=== PATIENT | male | born 1945 | race Caucasian/White ===

== ENCOUNTER 2022-07-08 12:17 | Inpatient (IN) | payer MEDICARE, OTHER ==
[~2022-07-08] VITALS: Ht 185.4 cm; Wt 149.7 kg
[~2022-07-08 12:17] MED LIST: [UNRECOGNIZED DRUG - REMARK]
--- NOTE | 2022-07-08 12:45 | NUR ---
GURVINDER RA839 From Home "Tripped on a cord and fell been on the ground x3d my friend called the manager application development to check on me since they have NOT heard from me". PLACED IN BED, AAOX4, BREATHING EVEN AND UNLABORED SATURATING AT 97%RA. BRUISED R SHOULDER AND ARM AND SLOUGH SKIN-WOUND OF THE R CHEEK NOTED, DENIES PAIN.
--- NOTE | 2022-07-08 12:53 | NUR ---
AT BEDSIDE FOR EVAL
[2022-07-08] MEDS ORDERED: IV NS 0.9% 1,000 ML BAG IV ONE (13:30)
--- NOTE | 2022-07-08 13:31 | NUR ---
laborer at bedside
--- NOTE | 2022-07-08 13:56 | NUR ---
X-RAY TECH AT BEDSIDE
--- NOTE | 2022-07-08 13:57 | NUR ---
SWAB FOR COVID19 SENT TO LAB
[2022-07-08 14:04] LABS: BASOPHILS % (AUTO) 0.1 % (0.0-2.0); HEMATOCRIT 37 % (39-51); HEMOGLOBIN 12.4 g/dL (13.5-17.5); LYMPHOCYTES # (AUTO) 0.6 K/uL (0.8-4.8); LYMPHOCYTES % (AUTO) 6.1 % (20.0-44.0); MEAN CORPUSCULAR HGB CONC 33 g/dl (31.0-36.0); MEAN CORPUSCULAR VOLUME 101 fL (80-96); MONOCYTES # (AUTO) 1.1 K/uL (0.1-1.30); MONOCYTES % (AUTO) 10.3 % (2.0-12.0); NEUTROPHILS # (AUTO) 8.8 K/uL (1.8-8.9); NEUTROPHILS % (AUTO) 83.5 % (43.0-81.0); PLATELET COUNT (AUTO) 140 K/uL (150-450); RED BLOOD CELL COUNT(AUTO) 3.67 MIL/uL (4.5-6.0); WHITE BLOOD COUNT (AUTO) 10.5 K/uL (4.3-11.0)
[2022-07-08 14:25] LABS: CALCIUM, SERUM 9.1 mg/dL (8.5-10.1); CARBON DIOXIDE 25 mmol/L (21-32); CHLORIDE 102 mmol/L (98-107); CREATININE 1.1 mg/dL (0.6-1.3); GLUCOSE 156 mg/dL (74-106); POTASSIUM 4.2 mmol/L (3.5-5.1); SODIUM SERUM 137 mmol/L (136-145); UREA NITROGEN, BLOOD 33 mg/dL (7-18)
[2022-07-08] MEDS ORDERED: ACETAMINOPHEN ES 500 MG TABLET PO ONE (14:30)
[2022-07-08 14:32] LABS: ALANINE AMINOTRANSFERASE 33 U/L (12-78); ALBUMIN 3.2 g/dL (3.4-5.0); ALKALINE PHOSPHATASE 79 U/L (46-116); ASPARTATE AMINOTRANSFERASE 66 U/L (15-37); BILIRUBIN,DIRECT 0.5 mg/dL (0.0-0.2); BILIRUBIN,TOTAL 1.6 mg/dL (0.2-1.0); LIPASE 438 U/L (73-393); TOTAL PROTEIN, SERUM 7.3 g/dL (6.4-8.2)
--- NOTE | 2022-07-08 14:43 | NUR ---
PATIENT TAKEN TO CT VIA NICK
[2022-07-08] MEDS ORDERED: ACETAMINOPHEN ES 500 MG TABLET ONE (14:56)
[2022-07-08] MEDS ORDERED: Z GUARD REMEDY 4 OZ OINT TP PRN (16:30)
[2022-07-08] MEDS ORDERED: ONDANSETRON HCL/PF 4 MG/2 ML VIAL IVP PRN (16:30)
[2022-07-08] MEDS ORDERED: MAGNESIUM HYDROXIDE 30 ML UDC PO PRN (16:30)
[2022-07-08] MEDS ORDERED: MAG HYDROX/AL HYDROX/SIMETH 30 ML UDC PO PRN (16:30)
--- NOTE | 2022-07-08 19:56 | NUR ---
REPORT GIVEN TO FILIPE RN ROOM 325 FOR DOM
[2022-07-08 20:00] VITALS: BP 151/83
[2022-07-08 20:30] VITALS: BP 151/83
[2022-07-08] MEDS: IV NS 0.9% 1,000 ML IV PRN (20:51)
--- NOTE | 2022-07-08 21:00 | NUR ---
ACCOUNT MANAGER EDUCATION NOTE RECEIVED PATIENT FROM ER VIA GURNEY; AWAKE, ALERT AND ORIENTED X 3. PATIENT UNABLE TO AMBULATE; WITH DIAGNOSIS OF WEAKNESS. ON O2 INHALATION @ 3 LPM VIA NASAL CANNULA; TOLERATING WELL SATURATING @ 99%. BREATHING EVEN AND NONLABORED. NOT IN ANY FORM OF RESPIRATORY OR CARDIAC DISTRESS. DENIES ANY PAIN OR DISCOMFORT AT THIS TIME. WITH IV ACCESS ON LEFT WRIST 22G: PATENT, INTACT AND SALINE LOCKED. SKIN/BODY ASSESSMENT DONE; PICTURES TAKEN AND PLACED TO CHART. INVENTORY OF PERSONAL BELONGINGS DONE AND FORM SIGNED. ABLE TO MAKE NEEDS KNOWN. ORIENTED TO STAFF, ROOM AND UNIT. SAFETY MEASURES IMPLEMENTED: HEAD OF BED ELEVATED, CALL LIGHT AND TABLE WITHIN EASY REACH, SIDE RAILS UP X 2, BED IN LOWEST LOCKED POSITION. WILL CONTINUE TO MONITOR.
[2022-07-09 06:45] LABS: BASOPHILS % (AUTO) 0.2 % (0.0-2.0); EOSINOPHILS % (AUTO) 1.4 % (0.0-6.0); HEMATOCRIT 33 % (39-51); HEMOGLOBIN 11.1 g/dL (13.5-17.5); LYMPHOCYTES % (AUTO) 13.2 % (20.0-44.0); MEAN CORPUSCULAR HGB CONC 34 g/dl (31.0-36.0); MEAN CORPUSCULAR VOLUME 100 fL (80-96); MONOCYTES # (AUTO) 1.1 K/uL (0.1-1.30); MONOCYTES % (AUTO) 14.4 % (2.0-12.0); NEUTROPHILS # (AUTO) 5.3 K/uL (1.8-8.9); NEUTROPHILS % (AUTO) 70.8 % (43.0-81.0); PLATELET COUNT (AUTO) 130 K/uL (150-450); RED BLOOD CELL COUNT(AUTO) 3.28 MIL/uL (4.5-6.0); WHITE BLOOD COUNT (AUTO) 7.5 K/uL (4.3-11.0)
--- NOTE | 2022-07-09 07:05 | NUR ---
RN CLOSING NOTE PATIENT IN BED; AWAKE, A/O X 3. ON O2 INHALATION @ 3 LPM VIA NASAL CANNULA; WELL TOLERATED. IN NO ACUTE DISTRESS . DENIES ANY PAIN OR DISCOMFORT AT THIS TIME. WITH IV ACCESS LEFT WRIST 22G; PATENT AND INTACT INFUSING WITH NS 1L RUNNING @ 75 ML/HR; FLUSHES WELL. SAFETY MEASURES MAINTAINED: CALL LIGHT AND TABLE WITHIN REACH, SIDE RAILS UP X 3, BED IN LOWEST LOCKED POSITION. ENDORSED TO MORNING SHIFT FOR DOM.
--- NOTE | 2022-07-09 07:25 | NUR ---
RN OPENING NOTE PATIENT IN BED, AWAKE, A/O X 3-4, VERBALLY RESPONSIVE. NO SIGNS OF ACUTE DISTRESS NOTED. ON O2 INHALATION @3 LPM VIA NASAL CANNULA, BREATHING EVEN AND UNLABORED. DENIES ANY PAIN OR DISCOMFORT AT THIS TIME. NOTED WITH IV ACCESS ON LEFT WRIST #22G, INTACT AND PATENT RUNNING WITH NS @ 75 ML/HR. SAFETY MEASURES IN PLACE. BED IN LOWEST AND LOCKED POSITION, SIDE RAILS UP X3, CALL LIGHT PLACED WITHIN EASY REACH. WILL CONTINUE TO MONITOR PATIENT.
[2022-07-09 07:35] LABS: ALBUMIN 2.6 g/dL (3.4-5.0); BILIRUBIN,DIRECT 0.4 mg/dL (0.0-0.2); BILIRUBIN,TOTAL 1.1 mg/dL (0.2-1.0); CALCIUM, SERUM 8.4 mg/dL (8.5-10.1); CREATININE 0.9 mg/dL (0.6-1.3); MAGNESIUM 2.6 mg/dL (1.8-2.4); POTASSIUM 3.6 mmol/L (3.5-5.1); TOTAL PROTEIN, SERUM 6.2 g/dL (6.4-8.2)
[2022-07-09 08:12] VITALS: BP 154/70
[2022-07-09] MEDS: IV NS 0.9% 1,000 ML IV PRN (11:01)
[2022-07-09] MEDS: ACETAMINOPHEN 325 MG TABLET PO PRN (11:01)
[2022-07-09 15:58] VITALS: BP 156/73
--- NOTE | 2022-07-09 18:57 | NUR ---
RN CLOSING NOTE PATIENT IN BED, AWAKE, A/O X 3-4, VERBALLY RESPONSIVE. NO SIGNS OF ACUTE DISTRESS NOTED. REMAINS ON O2 INHALATION @3 LPM VIA NASAL CANNULA, BREATHING EVEN AND UNLABORED. DENIES ANY PAIN OR DISCOMFORT AT THIS TIME. IV ACCESS ON LEFT WRIST #22G, INTACT AND PATENT RUNNING WITH NS @ 75 ML/HR. SAFETY MEASURES MAINTAINED. BED IN LOWEST AND LOCKED POSITION, SIDE RAILS UP X3, CALL LIGHT PLACED WITHIN EASY REACH. WILL ENDORSE TO NEXT SHIFT FOR CONTINUITY OF CARE.
--- NOTE | 2022-07-09 19:38 | NUR ---
RN OPENING NOTE PATIENT AWAKE IN BED. A/OX4. NO S/S OF DISTRESS, BREATHING WITHOUT DIFFICULTY ON 3L NC. L-WRIST #22 W/ NS 75ML/HR. SAFETY MEASURES IN PLACE: BED LOCKED IN PLACE AND AT LOWEST POSITION, RAILS UP X2, CALL OLSEN WITHIN REACH. WILL CONTINUE TO MONITOR PATIENT.
[2022-07-09 20:00] VITALS: BP 155/85
[2022-07-10] MEDS: IV NS 0.9% 1,000 ML IV PRN ×2 (01:21→16:28)
[2022-07-10] MEDS: ACETAMINOPHEN 325 MG TABLET PO PRN (02:43)
--- NOTE | 2022-07-10 06:56 | NUR ---
RN CLOSING NOTE PATIENT ASLEEP IN BED. A/OX4. NO S/S OF DISTRESS, BREATHING WITHOUT DIFFICULTY ON 3L NC. R-WRIST #20 INTACT AND PATENT W/ NS 75ML/HR. SAFETY MEASURES IN PLACE: BED LOCKED AND AT LOWEST POSITION, RAILS UP X2, CALL OLSEN WITHIN REACH. WILL ENDORSE TO NEXT SHIFT FOR DOM.
--- NOTE | 2022-07-10 07:30 | NUR ---
RN OPENING NOTE PATIENT ASLEEP IN BED. A/OX4. NO S/S OF DISTRESS, BREATHING WITHOUT DIFFICULTY ON 3L NC. L-WRIST #22 W/ NS 75ML/HR. SAFETY MEASURES IN PLACE: BED LOCKED IN PLACE AND AT LOWEST POSITION, RAILS UP X2, CALL OLSEN WITHIN REACH. WILL CONTINUE TO MONITOR PATIENT.
[2022-07-10 08:00] VITALS: BP 170/84
--- NOTE | 2022-07-10 08:58 | NUR ---
WOUND CARE CONSULT: PT STATES WAS ON THE FLOOR FOR 4 DAYS AT HOME, CRAWLING/SCOOTING ON HIS BUTTOCKS PRIOR TO ADMISSION. PT NOTED TO HAVE RASH WITH MOISTURE ASSOCIATED SKIN DAMAGE TO BUTTOCKS, DRY ABRASIONS TO ARMS AND LEGS, RT 4TH TOE DISCOLORATION, FACIAL LESION AND SCARRING TO HEAD (HISTORY OF SKIN CANCER) WELL DEEP TISSUE INJURY TO RT THIGH/BUTTOCK AREA, ALL PRESENT ON ADMISSION. DR MAGDALENE VALERIO CALLED FOR SURGICAL CONSULT. IN AGREEMENT WITH PLAN OF CARE. Addendum: 07/10/22 at [address] SÁNCHEZ CALLED FOR DPM CONSULT.
[2022-07-10] MEDS: NIFEdipine XL (30MG) 30 MG TAB PO SCH (09:05)
--- NOTE | 2022-07-10 09:30 | NUR ---
RN NOTE PT CAME BY AND SAW PATIENT. PATIENT WAS ABLE TO GET UP AND WALK AROUND WITH ASSIST OF A WALKER.
[2022-07-10 16:00] VITALS: BP 156/67
[2022-07-10] MEDS: PROSOURCE / PROSTAT (PYXIS) 30 ML UDC PO SCH (16:28)
[2022-07-10] MEDS: CLOTRIMAZOLE 1% 15 GM TUBE TP SCH (16:33)
--- NOTE | 2022-07-10 19:08 | NUR ---
RN CLOSING NOTE PATIENT AWAKE IN BED. A/OX4. NO S/S OF DISTRESS, BREATHING WITHOUT DIFFICULTY ON ROOM AIR. R-WRIST #20 INTACT AND PATENT W/ NS 75ML/HR. PATIENT HAS MULTIPLE SCABS AND TRIES TO PICK AT SOME. SAFETY MEASURES IN PLACE: BED LOCKED AND AT LOWEST POSITION, RAILS UP X2, CALL OLSEN WITHIN REACH. WILL ENDORSE TO NEXT SHIFT FOR CONTINUATION OF CARE
--- NOTE | 2022-07-10 19:45 | NUR ---
ms rn opening notes Received patient in bed awake, alert and oriented. A/O x 4. No respiratory distress noted. IV access at R wrist 20G, patent and intact with NS running at 75ml/hr infusing well. Safety measures given with bed on low position and locked. Side rails up x 3. Bed alarm on. Call light within reach. Will continue with the plan of care.
[2022-07-10 20:00] VITALS: BP 147/89
[2022-07-10] MEDS ORDERED: TEMAZEPAM 7.5 MG CAPSULE PO PRN (21:00)
--- NOTE | 2022-07-10 21:03 | NUR ---
RN notes Pt is requesting a sleeping pill. Informed and notify Dr. Payton. ordered restoril for sleeping. Order carried out.
--- NOTE | 2022-07-10 21:09 | NUR ---
RN notes Pt is having insomnia and requesting a sleeping pill. administered restoril 7.5 mg/po/prn for sleeping per Pt requested. safety precautions is maintained.
[2022-07-11] MEDS: IV NS 0.9% 1,000 ML IV PRN (05:59)
--- NOTE | 2022-07-11 06:30 | NUR ---
RN closing notes Pt is laying in bed comfortably watching TV. Pt is A/O x 4. No respiratory distress noted. no S/S of distress noted. IV access at R wrist 20G, patent and intact with NS running at 75ml/hr infusing well. Vs is stable. Kept Pt clean, dry and comfortable. All needs met and attended. Safety measures given with bed on low position and locked. Side rails up x 3. Bed alarm on. Call light within reach. Will endorse to am nurse for DOM.
[2022-07-11 06:34] LABS: CALCIUM, SERUM 8.5 mg/dL (8.5-10.1); CREATININE 0.8 mg/dL (0.6-1.3); POTASSIUM 3.6 mmol/L (3.5-5.1)
[2022-07-11 06:41] LABS: BASOPHILS % (AUTO) 0.7 % (0.0-2.0); EOSINOPHILS % (AUTO) 4.1 % (0.0-6.0); HEMATOCRIT 34 % (39-51); HEMOGLOBIN 11.4 g/dL (13.5-17.5); LYMPHOCYTES # (AUTO) 1.1 K/uL (0.8-4.8); LYMPHOCYTES % (AUTO) 18.8 % (20.0-44.0); MEAN CORPUSCULAR HGB CONC 34 g/dl (31.0-36.0); MEAN CORPUSCULAR VOLUME 100 fL (80-96); MONOCYTES # (AUTO) 0.9 K/uL (0.1-1.30); MONOCYTES % (AUTO) 15.4 % (2.0-12.0); NEUTROPHILS # (AUTO) 3.6 K/uL (1.8-8.9); PLATELET COUNT (AUTO) 127 K/uL (150-450); RED BLOOD CELL COUNT(AUTO) 3.34 MIL/uL (4.5-6.0); WHITE BLOOD COUNT (AUTO) 5.8 K/uL (4.3-11.0)
[2022-07-11 07:00] VITALS: BP_SYST 100; BP_SYST 116; BP_DIAS 66; BP_DIAS 84
--- NOTE | 2022-07-11 07:23 | NUR ---
MS RN OPENING NOTE RECEIVED PATIENT AWAKE IN BED. A/OX4, ABLE TO MAKE NEEDS KNOWN, NO S/S OF ANY APPARENT DISTRESS, STABLE ON ROOM AIR, WITHOUT ANY BREATHING DIFFICULTY. IV ACCESS ON R WRIST G#20 W/ NS 75ML/HR, PATENT FLUSHING WELL. NO COMPLAINTS OF ANY PAIN NOR DISCOMFORT. SAFETY MEASURES IN PLACE: BED LOCKED AND AT LOWEST POSITION, RAILS UP X2, CALL LIGHT AND TRAY WITHIN REACH. WILL CONTINUE TO MONITOR PATIENT.
[2022-07-11 08:00] VITALS: BP 148/71
[2022-07-11] MEDS: CLOTRIMAZOLE 1% 15 GM TUBE TP SCH ×2 (09:04→17:03)
[2022-07-11] MEDS: PROSOURCE / PROSTAT (PYXIS) 30 ML UDC PO SCH ×3 (09:10→12:06)
[2022-07-11] MEDS: NIFEdipine XL (30MG) 30 MG TAB PO SCH (09:14)
[2022-07-11 16:00] VITALS: BP 172/77
--- NOTE | 2022-07-11 16:01 | NUR ---
RN NOTES - PSYCH CONSULT FAX OVER TO [facility] FOR MARYANNE KELLY MD
--- NOTE | 2022-07-11 16:10 | NUR ---
RN NOTES - IV OUT, PATIENT PULLED OUT IV ACCIDENTALLY. WILL START A NEW LINE.
--- NOTE | 2022-07-11 16:52 | NUR ---
SS CONSULT REQUESTED, SW WILL FOLLOW UP AT A LATER TIME.
--- NOTE | 2022-07-11 17:04 | NUR ---
RN NOTES - PATIENT REFUSING IV ACCESS, DESPITE EDUCATION AND ENCOURAGEMENT, PATIENT IS EATING/DRINKING INDEPENDENTLY, BUN AND CREATININE ARE WITHIN NORMAL RANGE. DR BILLINGSLEY HAS BEEN INFORMED, CHARGE NURSE AWARE.
[2022-07-11 17:37] LABS: BAND % (MANUAL) 1 % (0.0-5.0); EOSINOPHILS % (MANUAL) 4 % (0-4); LYMPHOCYTES % (MANUAL) 18 % (16-48); MONOCYTES % (MANUAL) 11 % (0-11.0); NEUTROPHILS % (MANUAL) 66 (42-76)
--- NOTE | 2022-07-11 18:33 | NUR ---
MS RN CLOSING NOTE PATIENT AWAKE IN BED. A/OX4, ABLE TO MAKE NEEDS KNOWN, NOT IN ANY FORM APPARENT DISTRESS, STABLE ON ROOM AIR, WITHOUT ANY BREATHING DIFFICULTY. NO IV ACCESS. NO COMPLAINTS OF ANY PAIN NOR DISCOMFORT. ALL NEEDS MET, ALL DUE MEDS GIVEN. SAFETY MEASURES MAINTAINED: BED LOCKED AND AT LOWEST POSITION, RAILS UP X2, CALL LIGHT AND TRAY WITHIN REACH. WILL ENDORSE TO THERMIT WELDING MACHINE OPERATOR NURSE.
--- NOTE | 2022-07-11 19:20 | NUR ---
MS RN opening note Received patient in bed SLEEPING, easy to arouse. Pt A/O x 4, able to make needs known. No respiratory distress noted. IV access to Right wrist 20G, patent and intact with NS running at 75ml/hr infusing well. Safety measures implemented: bed locked, in low position. Side rails up x 3. Bed alarm on. Call light within reach. Will continue to monitor patient.
[2022-07-11 20:00] VITALS: BP 169/106
--- NOTE | 2022-07-11 22:00 | NUR ---
MS RN NOTE PT'S BP WAS 169/76 AT 1999. BP IS RETAKEN. NOW BP: 155/78.
[2022-07-12 06:21] LABS: BASOPHILS % (AUTO) 0.8 % (0.0-2.0); EOSINOPHILS % (AUTO) 3.8 % (0.0-6.0); HEMATOCRIT 33 % (39-51); LYMPHOCYTES # (AUTO) 1.1 K/uL (0.8-4.8); LYMPHOCYTES % (AUTO) 20.4 % (20.0-44.0); MEAN CORPUSCULAR HGB CONC 33 g/dl (31.0-36.0); MEAN CORPUSCULAR VOLUME 99 fL (80-96); MONOCYTES # (AUTO) 0.9 K/uL (0.1-1.30); MONOCYTES % (AUTO) 15.8 % (2.0-12.0); NEUTROPHILS # (AUTO) 3.2 K/uL (1.8-8.9); NEUTROPHILS % (AUTO) 59.2 % (43.0-81.0); PLATELET COUNT (AUTO) 144 K/uL (150-450); RED BLOOD CELL COUNT(AUTO) 3.32 MIL/uL (4.5-6.0); WHITE BLOOD COUNT (AUTO) 5.4 K/uL (4.3-11.0)
--- NOTE | 2022-07-12 06:55 | NUR ---
MS RN CLOSING NOTE LEFT PATIENT AWAKE IN BED. A/OX4, ABLE TO MAKE NEEDS KNOWN, NO ACUTE DISTRESS, STABLE ON ROOM AIR, WITHOUT ANY BREATHING DIFFICULTY. NO IV ACCESS. NO COMPLAINTS OF ANY PAIN NOR DISCOMFORT. ALL NEEDS MET, ALL DUE MEDS GIVEN. SAFETY MEASURES MAINTAINED: BED LOCKED AND AT LOWEST POSITION, RAILS UP X2, CALL LIGHT AND TRAY WITHIN REACH. WILL ENDORSE TO AM SHIFT NURSE FOR DOM.
[2022-07-12 07:00] VITALS: BP 166/77
[2022-07-12 07:06] LABS: CALCIUM, SERUM 8.6 mg/dL (8.5-10.1); CREATININE 0.7 mg/dL (0.6-1.3); POTASSIUM 3.5 mmol/L (3.5-5.1)
--- NOTE | 2022-07-12 07:30 | NUR ---
RN opening note Received patient in bed SLEEPING, easy to arouse. Pt A/O x 4, able to make needs known. No respiratory distress noted. NO IV access. Refused new IV. Doctor made aware. Safety measures implemented: bed locked, in low position. Side rails up x 3. Bed alarm on. Call light within reach. Will continue to monitor patient throughout the day
[2022-07-12] MEDS: PROSOURCE / PROSTAT (PYXIS) 30 ML UDC PO SCH ×3 (08:10→17:23)
[2022-07-12] MEDS: NIFEdipine XL (30MG) 30 MG TAB PO SCH (08:10)
[2022-07-12] MEDS: CLOTRIMAZOLE 1% 15 GM TUBE TP SCH ×2 (08:11→17:23)
[2022-07-12] MEDS ORDERED: NIFE-35 PO (09:13)
[2022-07-12 16:00] VITALS: BP 161/83
--- NOTE | 2022-07-12 17:05 | NUR ---
SS consult: SS Consult requested for safe discharge planning. The pt. is 77-year-old male admitted to [facility] for general weakness status post fall left leg pain, rule out fracture, electrolyte abnormalities. ARY met with pt. at bedside. The pt. is alert & oriented x 4 and makes good eye contact. The pt. appears well-groomed with some scabs on left forehead, elbow and knee. 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 The pt. has euthymic mood & affect. Pt. denies SI/HI and denies hallucinations. Per pt. he resides at home [[address] [address]] alone. Per pt. he fell at home after tripping over a cable wire and could not get up for total 4 days. CM notified ARY that pt. is refusing ARU, SNF and Home health services. SW encouraged Jose to agree to home health services. Pt. stated he has a bike he will begin using at home and if he feels he needs additional assistance he will agree to home health. CM is aware of plan and will follow up as needed. SW will follow up and make APS report for self-neglect and for home wellness/safety check. Pt. stated he will think about it. ARY provided pt. with senior resources including for transportation, meal delivery, DME, insurance assistance etc. Pt. was receptive and stated he will use resources as needed. Pt. denies any history of mental illness and denies drug or alcohol addiction. pt. states he drinks wine on occasion. 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 Pt. states he never had children or . Pt.s support system includes his friend, JASON HOPKINS tel:[phone]. Per pt. he is independent with all his ADLs and sometimes needs minimal assistance. Per pt. he is ambulatory with a cane and will use it at home for safe ambulation. Per pt. he receives SSI. DC Plan: Per pt. she would like to return home [[address] [facility] [address]] alone. Per CM note transportation was set up for 6 pm belt picker to return home. CM on standby to also order home health services within the next few days if pt. decides to receive services. ARY discussed this with pt. and he Sera AVILEZ. ARY provided pt. with the follow senior resources and pt. accepted them: ABUSE PREVENTION: ELDER ABUSE HOTLINE (21/01) ADULT PROTECTIVE SERVICES HOTLINE LONG-TERM CARE [facility] Region AREA ON AGING (HOTLINE) ADULT DAY HEALTH CARE CARE CENTERS: Private pay or Medi-billy funded adult day care [facility] Day Health Care [facility] , [facility] , [facility] Adult Care Center , [facility] Adult Day Health Care , [facility] Adult Day Health Care , [facility] Adult Daycare Center , [place] ONE [facility] , [facility] , [place] ALZHEIMERS DISEASE/DEMENTIA: Alzheimers Association Helpline [facility] www.alz.org/[facility] Department of Aging www.lacity.org Family Caregiver [place] www.caregiver.org [place] Caregiver Resources Center/Family Support www.[facility].org CANCER RESOURCES: [place] Cancer Society www.cancer.org Cancer Support Community www.CancerSupportVvsb.org: CancerCare www.cancercare.org [facility] Cancer Support Center www.spark.org COMMUNITY HEALTH ASSOCIATIONS: AARP www.aarp.org ALS Association (ask for Su) www.als.org [place] Diabetes Association www.diabetes.org [place] Heart Association www.heart.org [place] Lung Association www.lungusa.org [place] Parkinson Disease Association www.apdaparkinson.org [place] , www.redcross.org Arthritis Foundation www.arthritis.org Crohns & Colitis Foundation of [place] www.ccfa.org/chapters/[place]ang[place] National Multiple Sclerosis Society www.nationalmssociety.org Myasthenia Gravis Foundation www.myasthenia-ca.org National Stroke Association www.stroke.org CONSERVATORSHIP & GUARDIANSHIP: AARVin Aishwarya Echevarria Legal Services Center for Health Care Rights Eldercare Information and Referral Dry Clipper Tender [facility]: [facility] Referral Service [facility] Legal Services Office of the Public Guardian [place] EYESIGHT DISORDER RESOURCES: [place] Macular Degeneration Foundation [facility] www.[facility].org GRIEF AND BEREAVEMENT RESOURCES: The [place] , [facility] THE HOPE Connection , [facility]ment Center , [place] HEARING DISORDER RESOURCES: [place] Telephone Access Program Deaf and Disabled Telecommunications Program www.ddtp.cpuc.ca.gov HearRx Hearing Centers ([place]) Better Hearing Systems , [place] GLAD ([facility] Agency on Deafness) V/ TTY; Carton Repairer [facility], [place] Hearing Foundation -low income hearing aid assistance www.[facility] general health centerringfoundation.org Golden Hearing Care , Marilyn HELP AT HOME CAREGIVER SUPPORT: In Home Support Services (Must have Medi-Billy to be eligible) *Ask for a list of agencies that provide services to assist with care in the home. Local Senior Centers also have listings of care providers. HOME SAFETY MODIFICATIONS AND EQUIPMENT: Senior centers have additional referrals. [place] Zebra Mobile and Dreampod Dept. Handyworker Program (low income) or Visit http://hcidla.[facility].org/bhz-qenyqu-fs for more information National Seating and Mobility and/or ; Forever Active www.forever39 Health.AuctionPay Stay Home Safe www.Stayhomesafe.com LIFE ALERT RESPONSE SYSTEM: Thefuture.fm Lifeline Services 738-933-8154 www. LifeSpark Marketing and Research.AuctionPay Life Alert 126-106-1964 www.lifeMoblyngrtVC VISION Life Station 450-012-1986 www.digiSchoolation.AuctionPay Safe Return [phone] www.alz.or/safereturn Cell Phones for Seniors www.GoInformatics MEALS AND FOOD PROGRAMS: [place] Meals on Wheels [phone] [place] Meals on Wheels [phone] [facility] [phone] [place] to the Homebound [phone] [place] to the Homebound [phone] [facility] to the Homebound [phone] [facility] to the Homebound [phone] Timothy Gonzalez [phone] Rona Marco A Theriot [phone] ONE Generation [phone] [facility] [phone] [facility]e [facility] [phone] Meals on Wheels [phone] For all ages: $6.85/ meal w side. Delivered M-F from 10 am-1pm. Application and payment is done over the phone. Frozen meals available for weekends. Emergency Food [facility] [phone] Radha Travel Specialist [phone] [facility] [phone] [facility] Outreach- Brown bag lunches [phone] [facility] [phone] MEAL/GROCERY DELIVERY PROGRAMS: [facility] Gourmet Meals [phone]- [facility] [phone]- [facility] Magic Kitchen [phone] Moms Meals [phone] (ask [place] for Discount Select grocery stores may provide delivery. MEDICAL INSURANCE SUPPORT SERVICES: Center for Health Care Rights [phone] Health Insurance Counseling/Advocacy Programs (HICAP)-Must have Medicare. Offers counseling for Medi-Billy eligibility [phone] Department of Public Travel Specialist 522-543-1534 www.[facility].ca.gov Medicare 650-653-2866 www.socialsecurity.org Social Security [phone] SENIOR ACTIVITY PROGRAMS: *Contact a local senior center, adult school, recreation facility or community college for education, fitness, recreation, and social programs. Aquatic Therapy and Adapted Exercise programs through UN [phone] [facility] 293-275-4392 www.[facility]/encore U- Senior Friends [phone] Anon Raices Senior Programs [phone] www.oasisnet.org Suddenly 65 www.badrptkq79.com SENIOR CENTERS: [facility] [phone] [facility] [phone] [facility] [phone] [facility] [phone] [facility] [phone] [facility] [phone] [facility] [phone] [facility] [phone] One GenerationJeannie [facility] Center [phone] [facility] [phone] [facility] [phone] [facility] [phone] [facility] [phone] TRANSPORTATION: Local [facility] Centers may have applications for transportation programs and additional resources. ACCESS Services [phone] Transportation for seniors and disabled persons 7 days a week requiring 254 hr. advance reservation. Must apply and register for program joanna eligible. SecureWave 860-083-7292 or [phone] Transportation for seniors and persons with ADA card/metro disabled card in the [facility]. M-F only. Must register for services. ONE GENERATION [phone] Serves 65 years + in conjunction with [place] capital online science and technology program. Must be registered with both programs. A to B Transport [phone] Provides wheelchair/gurney van service. Adult Medical Transport [phone] Accepts Medi-billy with prior authorization. Care Van [phone] Provides wheelchair Transport. [facility] Wide Transportation [phone] Provides gurney service [facility] [phone] Gurney Transport. [facility] Town Transportation [phone] wheelchair & gurney transport D Transportation [phone] wheelchair & gurney transport [place] Non-Emergency Transport [phone] wheelchair & gurney transport [facility] Living Theriot [phone] Short Term Transportation primarily for adults with disabilities on social security income. Nominal fee may apply and a reservation is required. [facility] Cab [phone] or [phone] Genometry [phone] [place] [address] Services -[phone] For additional programs & services VETERANS RESOURCES: Submissions for Aid and Attendance should be done directly to [facility] office locatd at : [address] [facility] [phone] National Caregiver Support Line [phone] [facility] Veterans Services Field Office [phone] [place] Department of Affairs [phone] Pension Information [phone]
--- NOTE | 2022-07-12 19:02 | NUR ---
RNWAITING FOR AMBULANCE TO ARRIVE IN ORDER TO DISCHARGE
--- NOTE | 2022-07-12 19:20 | NUR ---
DISCHARGED. BROUGHT OUT BY EMT
[2022-07-12 21:59] LABS: EOSINOPHILS % (MANUAL) 5 % (0-4); LYMPHOCYTES % (MANUAL) 20 % (16-48); MONOCYTES % (MANUAL) 11 % (0-11.0); NEUTROPHILS % (MANUAL) 64 (42-76)
== END 2022-07-13 | disposition home or self-care (01) | DRG 682 ==
LOC: ER 13:35 → MED 19:44
PROVIDERS: ADMIT Internal Medicine; ATTEND Internal Medicine
DX: N17.0 Acute kidney failure with tubular necrosis (principal); E43 Unspecified severe protein-calorie malnutrition; G93.41 Metabolic encephalopathy; K85.90 Acute pancreatitis without necrosis or infection, unspecified; M62.82 Rhabdomyolysis; Z68.41 Body mass index [BMI] 40.0-44.9, adult; F05 Delirium due to known physiological condition; Z20.822 Contact with and (suspected) exposure to COVID-19; E78.5 Hyperlipidemia, unspecified; I10 Essential (primary) hypertension; W01.10XA Fall on same level from slipping, tripping and stumbling with subsequent striking against unspecified object, initial encounter; Y92.009 Unspecified place in unspecified non-institutional (private) residence as the place of occurrence of the external cause; S09.90XA Unspecified injury of head, initial encounter; N40.0 Benign prostatic hyperplasia without lower urinary tract symptoms; Z85.841 Personal history of malignant neoplasm of brain; Z98.890 Other specified postprocedural states; E66.9 Obesity, unspecified; E88.09 Other disorders of plasma-protein metabolism, not elsewhere classified; F43.20 Adjustment disorder, unspecified; E86.0 Dehydration
CPT/HCPCS: 36415; 70450-TC; 71045-TC; 72170-TC; 73564-TC; 73590-TC; 80048-TC; 80076-TC; 82550-TC; 82553; 82962-TC; 83690-TC; 83735-TC; 84100-TC; 84484-TC; 85025-TC; 87081-TC; 94799-TC; 97116-TC; 97530-TC; C9803; G0378; J7030